=== PATIENT | female | born 1970 | race Two or more races ===

== ENCOUNTER 2017-06-07 19:31 | Emergency (ER) | payer OTHER, MEDICAID ==
[~2017-06-07] VITALS: Ht 149.9 cm; Wt 67.6 kg
[~2017-06-07 19:31] MED LIST: ALBU0.63 IN; AMIT25TA9 PO; AMLO10TA2 PO; DOCU100T15 PO; ERGO1CAP6 PO; HYDR-4663 PO; HYDR25TA4 PO; LAMO100T44 PO; LAMO200T34 PO; LEVE100020 PO; LEVO500T21 PO; LOSA50TA6 PO; METO25TA5 PO; TIZA4TAB3
[2017-06-07 20:43] LABS: Basophils # (auto) 0 uL; Basophils % (auto) 0.3 % (0.0-2.0); CONDITION Y; Eosinophils # (auto) 0.3 uL; Eosinophils % (auto) 2.2 % (0.0-7.0); Hemoglobin 16.2 g/dL (12.2-16.2); Lymphocytes # (auto) 2.4 uL; Lymphocytes % (auto) 17.6 % (10.0-50.0); Mean Corpuscular Hemoglobin 29.8 pg (28.0-32.0); Mean Corpuscular Hgb Conc. 33.7 g/dL (32.0-36.0); Mean Corpuscular Volume 88.3 fL (80.0-100.0); Mean Platelet Volume 8.1 fL (6.9-10.8); Monocytes # (auto) 0.7 uL; Monocytes % (auto) 5.4 % (0.0-12.0); Neutrophils % (auto) 74.5 % (37.0-80.0); Platelet Count (auto) 453 10^3/uL (140-450); Red Cell Distribution Width 13.3 % (11.8-14.3); White Blood Cell 13.4 10^3/uL (4.4-10.8)
[2017-06-07 21:09] LABS: Albumin 4.8 g/dL (3.4-5.0); BUN/Creatinine Ratio 15.2; Bilirubin, Total 0.8 mg/dL (0.2-1.0); Potassium 3.4 mmol/L (3.5-5.1)
[2017-06-08 01:14] LABS: Urine Bilirubin Negative (Negative); Urine Blood 1+ /uL (Negative); Urine Color Yellow (Yellow); Urine Glucose 4+ mg/dL (Normal); Urine Hyaline Cast FEW /lpf (0 - 2); Urine Ketone 2+ (Negative); Urine Mucus FEW (None Seen); Urine Nitrite POSITIVE (Negative); Urine RBC <1 /hpf (0 - 4); Urine Squamous Epithelial Cell FEW /hpf (<5); Urine Urobilinogen Normal (Negative); Urine pH 5.5 (5.0-8.0)
[2017-06-08] MEDS ORDERED: ONDANSETRON HCL 4 MG/2 ML VIAL IV ONE (03:15)
[2017-06-08] MEDS ORDERED: ALBUTEROL SULF 2.5 MG/0.5ML(0.5%) NEB SOLN NEB ONE (03:15)
[2017-06-08] MEDS ORDERED: IPRATROPIUM BROM 0.5 MG/2.5ML INH SOL NEB ONE (03:15)
[2017-06-08] MEDS ORDERED: MORPHINE SULF INJ 2 MG/ML SYRINGE 1ML IV ONE (03:15)
[2017-06-08] MEDS ORDERED: cefTRIAXone 1GM/50ML D5W 50 ML IV ONE (06:15)
[2017-06-08 07:26] VITALS: BP 150/103
== END 2017-06-08 07:32 | disposition home or self-care (01) ==
LOC: EDBD 19:31 → ER 19:32
DX: S33.5XXA Sprain of ligaments of lumbar spine, initial encounter (principal); M54.16 Radiculopathy, lumbar region; N39.0 Urinary tract infection, site not specified; E66.01 Morbid (severe) obesity due to excess calories; Z68.30 Body mass index [BMI] 30.0-30.9, adult; R06.02 Shortness of breath; E11.9 Type 2 diabetes mellitus without complications; K21.9 Gastro-esophageal reflux disease without esophagitis; E78.5 Hyperlipidemia, unspecified; I10 Essential (primary) hypertension; G89.4 Chronic pain syndrome; M54.9 Dorsalgia, unspecified; Z90.710 Acquired absence of both cervix and uterus; Z79.899 Other long term (current) drug therapy
CPT/HCPCS: 36415; 71020; 74176; 80053; 81001; 83690; 85025; 85379; 93005; 94640; 96365; 96375; 99285; J0696; J2270; J2405

== ENCOUNTER 2020-05-24 00:02 | Emergency (ER) | payer OTHER, MEDICAID ==
[~2020-05-24] VITALS: Ht 149.9 cm; Wt 81.6 kg
[~2020-05-24 00:02] MED LIST changes: +AMLO10TA13 PO; -AMLO10TA2 PO; -HYDR-4663 PO; +HYDR-4833 PO; +LOSA-69 PO; -LOSA50TA6 PO
[2020-05-24] MEDS ORDERED: ONDANSETRON HCL 4 MG/2 ML VIAL IV ONE (00:30)
[2020-05-24] MEDS ORDERED: HYDROmorphone HCL 2 MG/ML VL IV ONE ×2 (00:30→02:30)
[2020-05-24 01:14] LABS: Basophils # (auto) 0 10 ^3/uL (0-0.2); Basophils % (auto) 0.1 % (0.0-2.0); Eosinophils # (auto) 0 10 ^3/uL (0-0.8); Hematocrit 46.4 % (36.0-46.0); Lymphocytes # (auto) 1.1 10 ^3/uL (0.4-5.4); Lymphocytes % (auto) 7.8 % (10.0-50.0); Mean Corpuscular Hgb Conc. 34.5 g/dL (32.0-36.0); Mean Corpuscular Volume 87.1 fL (80.0-100.0); Monocytes # (auto) 0.4 10 ^3/uL (0-1.3); Neutrophils # (auto) 12.2 10 ^3/uL (1.6-8.6); Neutrophils % (auto) 89.1 % (37.0-80.0); Nucleated Red Blood Cells % 0.1 %; Platelet Count (auto) 504 10^3/uL (140-450); Red Blood Cells 5.32 10^6/uL (4.0-5.20); Red Cell Distribution Width 13.3 % (11.8-14.3); White Blood Cell 13.7 10^3/uL (4.4-10.8)
[2020-05-24 01:27] LABS: Albumin 5.3 g/dL (3.4-5.0); Calcium 10.1 mg/dL (8.5-10.1)
[2020-05-24 01:30] LABS: Bilirubin, Total 0.6 mg/dL (0.2-1.0); Total Protein 9.8 g/dL (6.4-8.2)
[2020-05-24] MEDS ORDERED: KETOROLAC TROMETH 30 MG/ML 1ML VIAL IV ONE ×2 (01:30→03:30)
[2020-05-24 02:00] VITALS: BP 160/94
== END 2020-05-24 03:08 | disposition home or self-care (01) ==
LOC: EDBD 00:02 → ER 00:02
DX: M54.41 Lumbago with sciatica, right side (principal); G89.29 Other chronic pain; F32.9 Major depressive disorder, single episode, unspecified; E11.9 Type 2 diabetes mellitus without complications; K21.9 Gastro-esophageal reflux disease without esophagitis; E78.5 Hyperlipidemia, unspecified; I10 Essential (primary) hypertension; Z98.890 Other specified postprocedural states; Z90.710 Acquired absence of both cervix and uterus; Z79.899 Other long term (current) drug therapy
CPT/HCPCS: 36415; 72131; 80053; 85025; 96374; 96375; 96376; 99284; J1170; J1885; J2405

== ENCOUNTER 2020-05-26 06:49 | Emergency (ER) | payer OTHER, MEDICAID ==
[~2020-05-26] VITALS: Ht 149.9 cm; Wt 72.6 kg
[2020-05-26] MEDS ORDERED: cloNIDine HCL 0.1 MG TAB PO ONE (07:15)
[2020-05-26] MEDS ORDERED: KETOROLAC TROMETH 60MG/2ML VIAL IM ONE (07:15)
[2020-05-26 07:58] LABS: Basophils # (auto) 0.1 10 ^3/uL (0-0.2); Basophils % (auto) 0.5 % (0.0-2.0); Eosinophils # (auto) 0.1 10 ^3/uL (0-0.8); Hematocrit 47.6 % (36.0-46.0); Hemoglobin 15.8 g/dL (12.2-16.2); Lymphocytes % (auto) 17.8 % (10.0-50.0); Mean Corpuscular Hgb Conc. 33.2 g/dL (32.0-36.0); Mean Corpuscular Volume 87.3 fL (80.0-100.0); Monocytes # (auto) 0.9 10 ^3/uL (0-1.3); Monocytes % (auto) 8.2 % (0.0-12.0); Neutrophils % (auto) 72.5 % (37.0-80.0); Nucleated Red Blood Cells % 0.1 %; Platelet Count (auto) 399 10^3/uL (140-450); Red Blood Cells 5.45 10^6/uL (4.0-5.20); Red Cell Distribution Width 13.5 % (11.8-14.3)
[2020-05-26 08:15] LABS: Albumin 4.8 g/dL (3.4-5.0); Calcium 9.5 mg/dL (8.5-10.1); Potassium 3.6 mmol/L (3.5-5.1)
[2020-05-26 08:23] LABS: BUN/Creatinine Ratio 15.9; Bilirubin, Total 0.8 mg/dL (0.2-1.0); Total Protein 8.7 g/dL (6.4-8.2)
[2020-05-26 09:38] LABS: Urine Bacteria FEW /hpf (None Seen); Urine Blood Negative /uL (Negative); Urine Specific Gravity 1.005 (1.001-1.035); Urine WBC 3 /hpf (0 - 5)
[2020-05-26] MEDS ORDERED: SODIUM CHLORIDE 0.9% 1,000 ML IV ONE ×2 (10:24)
[2020-05-26] MEDS ORDERED: MECLIZINE HCL 25 MG TAB ONE (12:21)
[2020-05-26] MEDS ORDERED: MECLIZINE HCL 25 MG TAB PO ONE (12:30)
[2020-05-26 13:54] VITALS: BP 171/76
== END 2020-05-26 14:00 | disposition home or self-care (01) ==
LOC: EDBD 06:49 → ER 06:49
DX: S09.8XXA Other specified injuries of head, initial encounter (principal); G89.4 Chronic pain syndrome; E86.0 Dehydration; N39.0 Urinary tract infection, site not specified; R42 Dizziness and giddiness; E11.65 Type 2 diabetes mellitus with hyperglycemia; I10 Essential (primary) hypertension; K21.9 Gastro-esophageal reflux disease without esophagitis; E78.5 Hyperlipidemia, unspecified; X58.XXXA Exposure to other specified factors, initial encounter; Y93.89 Activity, other specified; Y92.89 Other specified places as the place of occurrence of the external cause; Y99.8 Other external cause status
CPT/HCPCS: 36415; 70450; 71045; 80053; 81001; 84484; 85025; 96360; 96361; 96372; 99285; J1885; J7030; J8597

== ENCOUNTER 2020-11-24 02:25 | Inpatient (IN) | payer OTHER, MEDICAID ==
[~2020-11-24] VITALS: Ht 152.4 cm; Wt 57.5 kg
[~2020-11-24 02:25] MED LIST changes: +AMLO-496 PO; -AMLO10TA13 PO; -LEVO500T21 PO; +LEVO500T31 PO
[2020-11-24] MEDS ORDERED: LORazepam 2MG/ML-1ML VIAL ONE (02:36)
[2020-11-24] MEDS ORDERED: LORazepam 2MG/ML-1ML VIAL IV ONE ×2 (02:45→22:15)
[2020-11-24 02:47] LABS: Basophils # (auto) 0.1 10 ^3/uL (0-0.2); Monocytes # (auto) 1.1 10 ^3/uL (0-1.3); Nucleated Red Blood Cells % 0.1 %; Red Cell Distribution Width 13.3 % (11.8-14.3)
[2020-11-24 02:49] LABS: Basophils % (auto) 0.6 % (0.0-2.0); Eosinophils # (auto) 0.2 10 ^3/uL (0-0.8); Hematocrit 42.1 % (36.0-46.0); Lymphocytes # (auto) 5.3 10 ^3/uL (0.4-5.4); Lymphocytes % (auto) 28.8 % (10.0-50.0); Mean Corpuscular Hemoglobin 28.9 pg (28.0-32.0); Mean Corpuscular Hgb Conc. 33.4 g/dL (32.0-36.0); Mean Corpuscular Volume 86.5 fL (80.0-100.0); Neutrophils # (auto) 11.6 10 ^3/uL (1.6-8.6); Neutrophils % (auto) 63.6 % (37.0-80.0); Platelet Count (auto) 456 10^3/uL (140-450); Red Blood Cells 4.86 10^6/uL (4.0-5.20); White Blood Cell 18.3 10^3/uL (4.4-10.8)
[2020-11-24] MEDS ORDERED: ACETAMINOPHEN 650 MG RECT SUPP PR ONE ×2 (03:00→03:26)
[2020-11-24 03:13] LABS: Albumin 4.2 g/dL (3.4-5.0); BUN/Creatinine Ratio 13.8; Calcium 9.1 mg/dL (8.5-10.1); Potassium 4.7 mmol/L (3.5-5.1)
[2020-11-24] MEDS ORDERED: fentaNYL CITRATE 100 MCG/2 ML VL IV ONE (03:15)
[2020-11-24] MEDS ORDERED: ONDANSETRON HCL 4 MG/2 ML VIAL IV ONE (03:15)
[2020-11-24 03:16] LABS: Bilirubin, Total 0.5 mg/dL (0.2-1.0); Total Protein 7.9 g/dL (6.4-8.2)
[2020-11-24] MEDS ORDERED: ACETAMINOPHEN 120 MG RECT SUPP PR ONE ×2 (03:26→03:27)
[2020-11-24 03:28] LABS: Lactic Acid w/Reflex 15.6 mmol/L (0.4-2.0)
[2020-11-24 03:48] LABS: Urine Bacteria FEW /hpf (None Seen); Urine Blood 1+ /uL (Negative); Urine Hyaline Cast FEW /lpf (0 - 2); Urine Specific Gravity 1.023 (1.001-1.035); Urine WBC 1 /hpf (0 - 5)
[2020-11-24 03:56] LABS: Alcohol, Urine < 3.0 mg/dL (0-10); Amphetamine Screen, Urine NEGATIVE (NEGATIVE); Barbiturate Scree,Urine NEGATIVE (NEGATIVE); Benzodiazephine Screen, Urine NEGATIVE (NEGATIVE); Cannabinoid Screen, Urine NEGATIVE (NEGATIVE); Cocaine Screen, Urine NEGATIVE (NEGATIVE); Opiate Scree,Urine POSITIVE (NEGATIVE); Phencyclidine Screen, Urine NEGATIVE (NEGATIVE)
[2020-11-24] MEDS ORDERED: cefTRIAXone 1GM/50ML D5W 50 ML IV ONE (05:45)
[2020-11-24] MEDS ORDERED: DEXTROSE (50%) 50ML SYRG IV PRN ×3 (05:45→07:15)
[2020-11-24] MEDS ORDERED: InsuLIN R (HUMAN) 100 UNITS in SODIUM CHL 0.9% 99 ML IV SCH (05:45)
[2020-11-24] MEDS ORDERED: INSULIN LANTUS (GLARGINE) 1 /0.01ml (100units/ml) SC ONE (05:45)
[2020-11-24] MEDS ORDERED: VANCOMYCIN 1GM/250ML 250 ML IV ONE (05:45)
[2020-11-24] MEDS ORDERED: SODIUM CHLORIDE 0.9% 1,000 ML IV ONE (05:45)
[2020-11-24] MEDS ORDERED: ACCU-CHEK COMFORT CURVE STRIP VI SCH ×2 (06:00→08:00)
[2020-11-24] MEDS ORDERED: LORazepam 2MG/ML-1ML VIAL IV PRN ×2 (07:15→10:00)
[2020-11-24] MEDS ORDERED: ONDANSETRON HCL 4 MG/2 ML VIAL IV PRN (07:15)
[2020-11-24] MEDS ORDERED: MORPHINE SULF INJ 2 MG/ML SYRINGE 1ML IV PRN (07:15)
[2020-11-24] MEDS ORDERED: ACETAMINOPHEN 325 MG TAB PO PRN (07:15)
[2020-11-24] MEDS ORDERED: NITROGLYCERIN 0.4 MG SL TAB SL PRN (07:15)
[2020-11-24] MEDS ORDERED: VANCOMYCIN PER PHARMACY 0 MG IV SCH (07:30)
[2020-11-24] MEDS: SODIUM CHLORIDE 0.9% 1,000 ML IV SCH (07:49)
[2020-11-24] MEDS ORDERED: InsuLIN REG 1unit/0.01ml Soln (100units/ml) SC SCH (08:00)
[2020-11-24 08:06] LABS: Albumin 3.5 g/dL (3.4-5.0); Calcium 7.8 mg/dL (8.5-10.1); Potassium 3.9 mmol/L (3.5-5.1)
[2020-11-24 08:10] LABS: Bilirubin, Total 0.4 mg/dL (0.2-1.0); Total Protein 6.8 g/dL (6.4-8.2)
[2020-11-24 08:15] LABS: Basophils # (auto) 0 10 ^3/uL (0-0.2); Basophils % (auto) 0.1 % (0.0-2.0); Eosinophils # (auto) 0 10 ^3/uL (0-0.8); Eosinophils % (auto) 0.1 % (0.0-7.0); Hematocrit 36.1 % (36.0-46.0); Hemoglobin 12.7 g/dL (12.2-16.2); Lymphocytes # (auto) 0.9 10 ^3/uL (0.4-5.4); Lymphocytes % (auto) 8.4 % (10.0-50.0); Mean Corpuscular Hemoglobin 29.3 pg (28.0-32.0); Mean Corpuscular Hgb Conc. 35.1 g/dL (32.0-36.0); Mean Corpuscular Volume 83.6 fL (80.0-100.0); Monocytes # (auto) 0.5 10 ^3/uL (0-1.3); Monocytes % (auto) 4.5 % (0.0-12.0); Neutrophils # (auto) 9.1 10 ^3/uL (1.6-8.6); Neutrophils % (auto) 86.9 % (37.0-80.0); Platelet Count (auto) 253 10^3/uL (140-450); Red Blood Cells 4.31 10^6/uL (4.0-5.20); Red Cell Distribution Width 12.9 % (11.8-14.3); White Blood Cell 10.5 10^3/uL (4.4-10.8)
[2020-11-24] MEDS: ZINC SULFATE 220mg CAP or TAB PO SCH (10:00)
[2020-11-24] MEDS: ASCORBIC ACID 500 MG TAB PO SCH ×2 (10:00→22:22)
[2020-11-24] MEDS: levETIRAcetam 500 MG TAB PO SCH ×2 (10:00→22:22)
[2020-11-24] MEDS: MULTIPLE VITAMIN TAB PO SCH (10:00)
[2020-11-24] MEDS ORDERED: VANCOMYCIN 1GM/250ML 250 ML IV SCH (10:00)
[2020-11-24] MEDS: FAMOTIDINE (10MG/ML) 2ML VL IV SCH (10:02)
[2020-11-24] MEDS: ENOXAPARIN SOD 40 MG/0.4 ML SYRINGE SC SCH (10:02)
[2020-11-24] MEDS: HYDROcodone-ACET 5/325MG TAB PO PRN (10:07)
[2020-11-24] MEDS: lamoTRIgine 100 MG TAB PO SCH ×2 (10:36→22:22)
[2020-11-24] MEDS: DOCUSATE SOD 100 MG CAP PO PRN (10:36)
[2020-11-24] MEDS: ACCU-CHEK COMFORT CURVE STRIP VI SCH ×3 (11:49→22:22)
[2020-11-24] MEDS: InsuLIN REG 1unit/0.01ml Soln (100units/ml) SC SCH ×3 (11:57→22:23)
[2020-11-24 12:30] VITALS: BP 152/92
[2020-11-24] MEDS: PIPERACILLIN-TAZOB 3.375GM 100 ML IV SCH ×2 (15:39→23:00)
[2020-11-24] MEDS: MORPHINE SULF INJ 2 MG/ML SYRINGE 1ML IV PRN ×2 (15:40→20:31)
[2020-11-24 17:00] VITALS: BP 145/102
[2020-11-24] MEDS ORDERED: CLON0.2T PO (17:03)
[2020-11-24] MEDS ORDERED: PIOG30TA20 PO (17:04)
[2020-11-24] MEDS ORDERED: LORA1TAB23 PO (17:06)
[2020-11-24] MEDS ORDERED: PREG50CA PO (17:08)
[2020-11-24] MEDS ORDERED: OXYB5TAB24 PO (17:08)
[2020-11-24] MEDS ORDERED: amLODIPine BESYLATE 5 MG TAB PO ONE (17:15)
[2020-11-24] MEDS ORDERED: cloNIDine HCL 0.1 MG TAB PO ONE (17:15)
[2020-11-24] MEDS: LORazepam 2MG/ML-1ML VIAL IV PRN (18:29)
[2020-11-24] MEDS: VANCOMYCIN 1GM/250ML 250 ML IV SCH (18:29)
[2020-11-24 22:00] VITALS: BP 178/102
[2020-11-24 22:27] LABS: BUN/Creatinine Ratio 12.4; Calcium 8.9 mg/dL (8.5-10.1); Potassium 3.9 mmol/L (3.5-5.1)
[2020-11-24 23:45] VITALS: BP 123/83
[2020-11-25] MEDS: MORPHINE SULF INJ 2 MG/ML SYRINGE 1ML IV PRN ×3 (03:55→18:37)
[2020-11-25 05:00] VITALS: BP 131/104
[2020-11-25 05:08] LABS: Basophils # (auto) 0 10 ^3/uL (0-0.2); Basophils % (auto) 0.4 % (0.0-2.0); Eosinophils # (auto) 0 10 ^3/uL (0-0.8); Hematocrit 42.7 % (36.0-46.0); Hemoglobin 14.8 g/dL (12.2-16.2); Lymphocytes # (auto) 1.2 10 ^3/uL (0.4-5.4); Lymphocytes % (auto) 9.7 % (10.0-50.0); Mean Corpuscular Hemoglobin 29.1 pg (28.0-32.0); Mean Corpuscular Hgb Conc. 34.6 g/dL (32.0-36.0); Monocytes # (auto) 0.7 10 ^3/uL (0-1.3); Monocytes % (auto) 6.2 % (0.0-12.0); Neutrophils % (auto) 83.7 % (37.0-80.0); Platelet Count (auto) 299 10^3/uL (140-450); Red Blood Cells 5.09 10^6/uL (4.0-5.20); Red Cell Distribution Width 13.5 % (11.8-14.3); White Blood Cell 11.9 10^3/uL (4.4-10.8)
[2020-11-25 05:26] LABS: Calcium 8.7 mg/dL (8.5-10.1); Potassium 3.9 mmol/L (3.5-5.1)
[2020-11-25 05:31] LABS: BUN/Creatinine Ratio 15.9; Total Protein 7.9 g/dL (6.4-8.2)
[2020-11-25] MEDS: PIPERACILLIN-TAZOB 3.375GM 100 ML IV SCH ×3 (05:52→22:42)
[2020-11-25] MEDS: VANCOMYCIN 1GM/250ML 250 ML IV SCH (06:05)
[2020-11-25] MEDS: LORazepam 2MG/ML-1ML VIAL IV PRN (06:06)
[2020-11-25] MEDS: ACCU-CHEK COMFORT CURVE STRIP VI SCH ×4 (06:33→22:00)
[2020-11-25] MEDS: InsuLIN REG 1unit/0.01ml Soln (100units/ml) SC SCH ×5 (06:34→22:49)
[2020-11-25 09:00] VITALS: BP 135/98
[2020-11-25] MEDS: FAMOTIDINE (10MG/ML) 2ML VL IV SCH (10:00)
[2020-11-25] MEDS: HCTZ 25 MG TAB PO SCH (10:00)
[2020-11-25] MEDS: ZINC SULFATE 220mg CAP or TAB PO SCH (11:33)
[2020-11-25] MEDS: lamoTRIgine 100 MG TAB PO SCH ×2 (11:33→22:40)
[2020-11-25] MEDS: levETIRAcetam 500 MG TAB PO SCH ×2 (11:33→22:39)
[2020-11-25] MEDS: MULTIPLE VITAMIN TAB PO SCH (11:33)
[2020-11-25] MEDS: ENOXAPARIN SOD 40 MG/0.4 ML SYRINGE SC SCH (11:34)
[2020-11-25] MEDS: amLODIPine BESYLATE 5 MG TAB PO SCH (11:51)
[2020-11-25] MEDS: cloNIDine HCL 0.1 MG TAB PO SCH ×2 (11:52→22:41)
[2020-11-25] MEDS: ASCORBIC ACID 500 MG TAB PO SCH ×2 (11:54→22:40)
[2020-11-25] MEDS: INSULIN LANTUS (GLARGINE) 1 /0.01ml (100units/ml) SC SCH (12:05)
[2020-11-25 13:00] VITALS: BP 123/92
[2020-11-25] MEDS: SODIUM CHLORIDE 0.9% 1,000 ML IV SCH (16:04)
[2020-11-25 17:00] VITALS: BP 110/68
[2020-11-25 21:00] VITALS: BP 115/83
[2020-11-25] MEDS: HYDROcodone-ACET 5/325MG TAB PO PRN (22:41)
[2020-11-26] MEDS: METOPROLOL TARTRATE 25 MG TAB PO SCH ×3 (00:36→22:15)
[2020-11-26] MEDS: MORPHINE SULF INJ 2 MG/ML SYRINGE 1ML IV PRN ×5 (00:37→22:15)
[2020-11-26 05:00] VITALS: BP 89/61
[2020-11-26] MEDS: InsuLIN REG 1unit/0.01ml Soln (100units/ml) SC SCH ×4 (06:22→22:26)
[2020-11-26] MEDS: PIPERACILLIN-TAZOB 3.375GM 100 ML IV SCH ×3 (06:26→22:16)
[2020-11-26] MEDS: ACCU-CHEK COMFORT CURVE STRIP VI SCH ×4 (06:29→22:26)
[2020-11-26 07:31] LABS: Basophils # (auto) 0 10 ^3/uL (0-0.2); Basophils % (auto) 0.1 % (0.0-2.0); Eosinophils # (auto) 0 10 ^3/uL (0-0.8); Hematocrit 43.9 % (36.0-46.0); Hemoglobin 14.9 g/dL (12.2-16.2); Lymphocytes # (auto) 0.8 10 ^3/uL (0.4-5.4); Lymphocytes % (auto) 5.3 % (10.0-50.0); Mean Corpuscular Hgb Conc. 33.9 g/dL (32.0-36.0); Mean Corpuscular Volume 85.4 fL (80.0-100.0); Monocytes # (auto) 0.5 10 ^3/uL (0-1.3); Monocytes % (auto) 3.3 % (0.0-12.0); Neutrophils # (auto) 13.3 10 ^3/uL (1.6-8.6); Neutrophils % (auto) 91.3 % (37.0-80.0); Platelet Count (auto) 320 10^3/uL (140-450); Red Blood Cells 5.14 10^6/uL (4.0-5.20); Red Cell Distribution Width 13.5 % (11.8-14.3); White Blood Cell 14.5 10^3/uL (4.4-10.8)
[2020-11-26 07:48] LABS: Calcium 9.1 mg/dL (8.5-10.1); Magnesium 2.4 mg/dL (1.6-2.6)
[2020-11-26 09:00] VITALS: BP 113/71
[2020-11-26] MEDS: SODIUM CHLORIDE 0.9% 1,000 ML IV SCH (09:00)
[2020-11-26] MEDS: amLODIPine BESYLATE 5 MG TAB PO SCH (09:17)
[2020-11-26] MEDS: lamoTRIgine 100 MG TAB PO SCH ×2 (09:17→22:15)
[2020-11-26] MEDS: ZINC SULFATE 220mg CAP or TAB PO SCH (09:17)
[2020-11-26] MEDS: MULTIPLE VITAMIN TAB PO SCH (09:18)
[2020-11-26] MEDS: ASCORBIC ACID 500 MG TAB PO SCH ×2 (09:18→22:14)
[2020-11-26] MEDS: FAMOTIDINE (10MG/ML) 2ML VL IV SCH ×2 (09:24→22:16)
[2020-11-26] MEDS: ENOXAPARIN SOD 40 MG/0.4 ML SYRINGE SC SCH (09:25)
[2020-11-26] MEDS: levETIRAcetam 500 MG TAB PO SCH ×2 (09:38→22:17)
[2020-11-26] MEDS: INSULIN LANTUS (GLARGINE) 1 /0.01ml (100units/ml) SC SCH (09:39)
[2020-11-26] MEDS: HCTZ 25 MG TAB PO SCH (10:00)
[2020-11-26] MEDS: ASPirin 81 mg TAB PO SCH (11:44)
[2020-11-26] MEDS: cloNIDine HCL 0.1 MG TAB PO SCH ×2 (11:44→22:14)
[2020-11-26 13:00] VITALS: BP 107/68
[2020-11-26 17:00] VITALS: BP 105/60
[2020-11-26 22:00] VITALS: BP 144/80
[2020-11-26] MEDS: ATORVASTATIN 20 MG TAB PO SCH (22:14)
[2020-11-26] MEDS: ENOXAPARIN SOD 60 MG/0.6 ML SYRINGE SC SCH (22:17)
[2020-11-27] MEDS: HYDROcodone-ACET 5/325MG TAB PO PRN ×2 (01:20→11:52)
[2020-11-27] MEDS: MORPHINE SULF INJ 2 MG/ML SYRINGE 1ML IV PRN ×2 (02:38→10:08)
[2020-11-27] MEDS: SODIUM CHLORIDE 0.9% 1,000 ML IV SCH ×2 (02:43→10:46)
[2020-11-27] MEDS: LORazepam 2MG/ML-1ML VIAL IV PRN (04:27)
[2020-11-27 05:00] VITALS: BP 124/79
[2020-11-27] MEDS: InsuLIN REG 1unit/0.01ml Soln (100units/ml) SC SCH ×4 (06:27→21:29)
[2020-11-27] MEDS: ACCU-CHEK COMFORT CURVE STRIP VI SCH ×4 (06:28→21:29)
[2020-11-27] MEDS: PIPERACILLIN-TAZOB 3.375GM 100 ML IV SCH ×3 (06:29→21:20)
[2020-11-27 09:21] VITALS: BP 121/78
[2020-11-27] MEDS: ENOXAPARIN SOD 60 MG/0.6 ML SYRINGE SC SCH (10:00)
[2020-11-27] MEDS: DOCUSATE SOD 100 MG CAP PO PRN (10:08)
[2020-11-27] MEDS: FAMOTIDINE (10MG/ML) 2ML VL IV SCH ×2 (10:28→21:20)
[2020-11-27] MEDS: ASPirin 81 mg TAB PO SCH (10:28)
[2020-11-27] MEDS: HCTZ 25 MG TAB PO SCH (10:29)
[2020-11-27] MEDS: METOPROLOL TARTRATE 25 MG TAB PO SCH ×2 (10:29→21:20)
[2020-11-27] MEDS: levETIRAcetam 500 MG TAB PO SCH ×2 (10:29→21:19)
[2020-11-27] MEDS: lamoTRIgine 100 MG TAB PO SCH ×2 (10:29→21:19)
[2020-11-27] MEDS: ZINC SULFATE 220mg CAP or TAB PO SCH (10:29)
[2020-11-27] MEDS: amLODIPine BESYLATE 5 MG TAB PO SCH (10:30)
[2020-11-27] MEDS: MULTIPLE VITAMIN TAB PO SCH (10:30)
[2020-11-27] MEDS: ASCORBIC ACID 500 MG TAB PO SCH ×2 (10:30→21:18)
[2020-11-27 11:25] LABS: Basophils # (auto) 0 10 ^3/uL (0-0.2); Basophils % (auto) 0.1 % (0.0-2.0); Eosinophils # (auto) 0 10 ^3/uL (0-0.8); Eosinophils % (auto) 0.1 % (0.0-7.0); Hematocrit 39.4 % (36.0-46.0); Hemoglobin 13.2 g/dL (12.2-16.2); Lymphocytes # (auto) 0.9 10 ^3/uL (0.4-5.4); Lymphocytes % (auto) 8.5 % (10.0-50.0); Mean Corpuscular Hemoglobin 28.7 pg (28.0-32.0); Mean Corpuscular Hgb Conc. 33.6 g/dL (32.0-36.0); Mean Corpuscular Volume 85.7 fL (80.0-100.0); Monocytes # (auto) 0.9 10 ^3/uL (0-1.3); Monocytes % (auto) 8.4 % (0.0-12.0); Neutrophils # (auto) 8.7 10 ^3/uL (1.6-8.6); Neutrophils % (auto) 82.9 % (37.0-80.0); Nucleated Red Blood Cells % 0.1 %; Platelet Count (auto) 320 10^3/uL (140-450); Red Cell Distribution Width 13.8 % (11.8-14.3); White Blood Cell 10.4 10^3/uL (4.4-10.8)
[2020-11-27 11:40] LABS: BUN/Creatinine Ratio 35.7; Calcium 8.8 mg/dL (8.5-10.1); Potassium 4.3 mmol/L (3.5-5.1)
[2020-11-27] MEDS: INSULIN LANTUS (GLARGINE) 1 /0.01ml (100units/ml) SC SCH (11:50)
[2020-11-27 13:47] VITALS: BP 135/83
[2020-11-27] MEDS: cloNIDine HCL 0.1 MG TAB PO SCH ×2 (13:53→21:20)
[2020-11-27 16:51] VITALS: BP 126/76
[2020-11-27] MEDS: MORPHINE SULFATE 4 MG/ML SYR/VIAL IV PRN (19:32)
[2020-11-27] MEDS: ATORVASTATIN 20 MG TAB PO SCH (21:19)
[2020-11-27 22:00] VITALS: BP 125/79
[2020-11-28] MEDS: SODIUM CHLORIDE 0.9% 1,000 ML IV SCH ×4 (00:39→21:51)
[2020-11-28] MEDS: MORPHINE SULFATE 4 MG/ML SYR/VIAL IV PRN ×4 (02:11→21:38)
[2020-11-28 05:00] VITALS: BP 121/82
[2020-11-28 05:44] LABS: Basophils # (auto) 0 10 ^3/uL (0-0.2); Basophils % (auto) 0.3 % (0.0-2.0); Eosinophils # (auto) 0.1 10 ^3/uL (0-0.8); Eosinophils % (auto) 1.3 % (0.0-7.0); Hematocrit 38.1 % (36.0-46.0); Hemoglobin 13.5 g/dL (12.2-16.2); Lymphocytes # (auto) 1.3 10 ^3/uL (0.4-5.4); Lymphocytes % (auto) 19.4 % (10.0-50.0); Mean Corpuscular Hemoglobin 29.9 pg (28.0-32.0); Mean Corpuscular Hgb Conc. 35.5 g/dL (32.0-36.0); Mean Corpuscular Volume 84.4 fL (80.0-100.0); Monocytes # (auto) 0.7 10 ^3/uL (0-1.3); Monocytes % (auto) 10.8 % (0.0-12.0); Neutrophils # (auto) 4.6 10 ^3/uL (1.6-8.6); Neutrophils % (auto) 68.2 % (37.0-80.0); Nucleated Red Blood Cells % 0.5 %; Platelet Count (auto) 307 10^3/uL (140-450); Red Blood Cells 4.52 10^6/uL (4.0-5.20); Red Cell Distribution Width 13.8 % (11.8-14.3); White Blood Cell 6.8 10^3/uL (4.4-10.8)
[2020-11-28 06:02] LABS: BUN/Creatinine Ratio 19.4; Calcium 8.5 mg/dL (8.5-10.1); Potassium 3.1 mmol/L (3.5-5.1)
[2020-11-28] MEDS: PIPERACILLIN-TAZOB 3.375GM 100 ML IV SCH ×3 (06:15→22:07)
[2020-11-28] MEDS: InsuLIN REG 1unit/0.01ml Soln (100units/ml) SC SCH ×4 (06:16→21:34)
[2020-11-28] MEDS: ACCU-CHEK COMFORT CURVE STRIP VI SCH ×4 (06:16→21:13)
[2020-11-28] MEDS: HYDROcodone-ACET 10/325MG TAB PO PRN ×2 (08:29→19:05)
[2020-11-28 09:00] VITALS: BP 146/83
[2020-11-28] MEDS: ENOXAPARIN SOD 40 MG/0.4 ML SYRINGE SC SCH ×2 (10:00→11:05)
[2020-11-28] MEDS: ZINC SULFATE 220mg CAP or TAB PO SCH (11:02)
[2020-11-28] MEDS: ASPirin 81 mg TAB PO SCH (11:02)
[2020-11-28] MEDS: FAMOTIDINE (10MG/ML) 2ML VL IV SCH ×2 (11:02→21:10)
[2020-11-28] MEDS: levETIRAcetam 500 MG TAB PO SCH ×2 (11:03→21:11)
[2020-11-28] MEDS: lamoTRIgine 100 MG TAB PO SCH ×2 (11:03→21:11)
[2020-11-28] MEDS: cloNIDine HCL 0.1 MG TAB PO SCH ×2 (11:03→21:11)
[2020-11-28] MEDS: HCTZ 25 MG TAB PO SCH (11:03)
[2020-11-28] MEDS: ASCORBIC ACID 500 MG TAB PO SCH ×2 (11:04→21:12)
[2020-11-28] MEDS: METOPROLOL TARTRATE 25 MG TAB PO SCH ×2 (11:04→21:12)
[2020-11-28] MEDS: MULTIPLE VITAMIN TAB PO SCH (11:04)
[2020-11-28] MEDS: amLODIPine BESYLATE 5 MG TAB PO SCH (11:04)
[2020-11-28] MEDS: INSULIN LANTUS (GLARGINE) 1 /0.01ml (100units/ml) SC SCH (12:34)
[2020-11-28 13:26] VITALS: BP 103/63
[2020-11-28] MEDS ORDERED: POTASSIUM CHLORIDE 40 MEQ, LIDOCAINE 1% (LOCAL ANESTH.) 4 ML in SODIUM CHL 0.9% 250 ML IV ONE (16:45)
[2020-11-28 17:37] VITALS: BP 119/70
[2020-11-28] MEDS: ATORVASTATIN 20 MG TAB PO SCH (21:11)
[2020-11-28 22:00] VITALS: BP 135/101
[2020-11-29] MEDS: MORPHINE SULFATE 4 MG/ML SYR/VIAL IV PRN ×4 (03:35→19:06)
[2020-11-29] MEDS: ACCU-CHEK COMFORT CURVE STRIP VI SCH ×4 (05:31→21:44)
[2020-11-29] MEDS: SODIUM CHLORIDE 0.9% 1,000 ML IV SCH ×2 (05:31→10:11)
[2020-11-29] MEDS: PIPERACILLIN-TAZOB 3.375GM 100 ML IV SCH ×3 (05:31→21:58)
[2020-11-29] MEDS: InsuLIN REG 1unit/0.01ml Soln (100units/ml) SC SCH ×4 (05:31→22:01)
[2020-11-29] MEDS: HYDROcodone-ACET 10/325MG TAB PO PRN ×2 (05:32→15:06)
[2020-11-29 05:35] VITALS: BP 146/86
[2020-11-29 08:50] VITALS: BP 134/80
[2020-11-29] MEDS: levETIRAcetam 500 MG TAB PO SCH ×2 (09:51→21:43)
[2020-11-29] MEDS: HCTZ 25 MG TAB PO SCH (09:52)
[2020-11-29] MEDS: cloNIDine HCL 0.1 MG TAB PO SCH ×2 (09:52→21:58)
[2020-11-29] MEDS: lamoTRIgine 100 MG TAB PO SCH ×2 (09:53→21:43)
[2020-11-29] MEDS: amLODIPine BESYLATE 5 MG TAB PO SCH (09:53)
[2020-11-29] MEDS: MULTIPLE VITAMIN TAB PO SCH (09:54)
[2020-11-29] MEDS: METOPROLOL TARTRATE 25 MG TAB PO SCH ×2 (09:55→21:58)
[2020-11-29] MEDS: INSULIN LANTUS (GLARGINE) 1 /0.01ml (100units/ml) SC SCH (10:10)
[2020-11-29] MEDS: POTASSIUM CHL 20 Meq TABLET PO SCH (10:10)
[2020-11-29] MEDS: FAMOTIDINE 20 MG TAB PO SCH (10:10)
[2020-11-29 13:30] VITALS: BP 145/101
[2020-11-29] MEDS ORDERED: GADOTERATE MEG 10 MMOL/20ml INJ (0.5MMOL/ml) IV ONE (14:13)
[2020-11-29] MEDS: LORazepam 2MG/ML-1ML VIAL IV PRN (15:22)
[2020-11-29 16:49] VITALS: BP 143/76
[2020-11-29] MEDS: CYCLOBENZAPRINE HCL 10 MG TAB PO SCH (21:42)
[2020-11-29] MEDS: ATORVASTATIN 20 MG TAB PO SCH (21:43)
[2020-11-29] MEDS: oxyCODONE ER 10 MG TAB PO SCH (21:44)
[2020-11-29 21:46] VITALS: BP 136/77
[2020-11-30] MEDS: SODIUM CHLORIDE 0.9% 1,000 ML IV SCH (00:40)
[2020-11-30] MEDS: MORPHINE SULFATE 4 MG/ML SYR/VIAL IV PRN (03:12)
[2020-11-30 04:43] VITALS: BP 118/75
[2020-11-30] MEDS: PIPERACILLIN-TAZOB 3.375GM 100 ML IV SCH ×2 (05:38→14:40)
[2020-11-30] MEDS: ACCU-CHEK COMFORT CURVE STRIP VI SCH ×4 (05:38→22:05)
[2020-11-30 06:13] LABS: Albumin 3.1 g/dL (3.4-5.0); BUN/Creatinine Ratio 11.9; Bilirubin, Total 0.7 mg/dL (0.2-1.0); Calcium 8.9 mg/dL (8.5-10.1); Magnesium 1.9 mg/dL (1.6-2.6)
[2020-11-30 06:18] LABS: Potassium 2.9 mmol/L (3.5-5.1)
[2020-11-30] MEDS ORDERED: POTASSIUM CHL 20 Meq TABLET PO ONE ×2 (06:30→10:30)
[2020-11-30] MEDS ORDERED: POTASSIUM CHLORIDE 40 MEQ, LIDOCAINE 1% (LOCAL ANESTH.) 4 ML in SODIUM CHL 0.9% 250 ML IV ONE (06:30)
[2020-11-30] MEDS: HYDROcodone-ACET 10/325MG TAB PO PRN (06:35)
[2020-11-30 07:56] LABS: INR 0.99 (0.9-1.15); Partial Thromboplastin Time 25.6 sec (23.0-31.2)
[2020-11-30 09:10] VITALS: BP 137/77
[2020-11-30] MEDS: levETIRAcetam 500 MG TAB PO SCH ×2 (09:16→21:53)
[2020-11-30] MEDS: MULTIPLE VITAMIN TAB PO SCH (09:17)
[2020-11-30] MEDS: POTASSIUM CHL 20 Meq TABLET PO SCH (09:17)
[2020-11-30] MEDS: METOPROLOL TARTRATE 25 MG TAB PO SCH ×2 (09:18→21:56)
[2020-11-30] MEDS: amLODIPine BESYLATE 5 MG TAB PO SCH (09:18)
[2020-11-30] MEDS: oxyCODONE ER 10 MG TAB PO SCH ×2 (09:18→21:54)
[2020-11-30] MEDS: lamoTRIgine 100 MG TAB PO SCH ×2 (09:18→21:53)
[2020-11-30] MEDS: FAMOTIDINE 20 MG TAB PO SCH (09:19)
[2020-11-30] MEDS: CYCLOBENZAPRINE HCL 10 MG TAB PO SCH ×2 (09:19→21:52)
[2020-11-30] MEDS: HCTZ 25 MG TAB PO SCH (09:20)
[2020-11-30] MEDS: cloNIDine HCL 0.1 MG TAB PO SCH ×2 (09:20→21:57)
[2020-11-30] MEDS: INSULIN LANTUS (GLARGINE) 1 /0.01ml (100units/ml) SC SCH (10:00)
[2020-11-30] MEDS ORDERED: HYDROcodone-ACET 10/325MG TAB PO PRN (10:30)
[2020-11-30] MEDS: InsuLIN REG 1unit/0.01ml Soln (100units/ml) SC SCH ×2 (11:30→17:00)
[2020-11-30 13:11] VITALS: BP 106/63
[2020-11-30 15:57] VITALS: BP 127/70
[2020-11-30] MEDS: MORPHINE SULF INJ 2 MG/ML SYRINGE 1ML IV PRN (20:27)
[2020-11-30] MEDS: ATORVASTATIN 20 MG TAB PO SCH (21:53)
[2020-11-30] MEDS: CIPROFLOXACIN HCL 500 MG TAB PO SCH (21:54)
[2020-11-30 22:00] VITALS: BP 139/110
[2020-11-30] MEDS: LORazepam 2MG/ML-1ML VIAL IV PRN (23:14)
[2020-12-01 05:00] VITALS: BP 133/77
[2020-12-01] MEDS: MORPHINE SULF INJ 2 MG/ML SYRINGE 1ML IV PRN ×3 (05:42→18:37)
[2020-12-01 06:09] LABS: BUN/Creatinine Ratio 17.5; Calcium 9.2 mg/dL (8.5-10.1); Potassium 4.4 mmol/L (3.5-5.1)
[2020-12-01] MEDS: ACCU-CHEK COMFORT CURVE STRIP VI SCH ×4 (06:26→20:24)
[2020-12-01] MEDS: InsuLIN REG 1unit/0.01ml Soln (100units/ml) SC SCH ×3 (06:27→17:19)
[2020-12-01] MEDS: LORazepam 2MG/ML-1ML VIAL IV PRN (08:36)
[2020-12-01 09:00] VITALS: BP 126/80
[2020-12-01] MEDS: amLODIPine BESYLATE 5 MG TAB PO SCH (09:52)
[2020-12-01] MEDS: lamoTRIgine 100 MG TAB PO SCH ×2 (09:52→21:26)
[2020-12-01] MEDS: levETIRAcetam 500 MG TAB PO SCH ×2 (09:53→21:26)
[2020-12-01] MEDS: POTASSIUM CHL 20 Meq TABLET PO SCH (09:54)
[2020-12-01] MEDS: CYCLOBENZAPRINE HCL 10 MG TAB PO SCH ×2 (09:54→21:26)
[2020-12-01] MEDS: FAMOTIDINE 20 MG TAB PO SCH (09:54)
[2020-12-01] MEDS: HCTZ 25 MG TAB PO SCH (09:55)
[2020-12-01] MEDS: CIPROFLOXACIN HCL 500 MG TAB PO SCH ×2 (09:55→21:25)
[2020-12-01] MEDS: oxyCODONE ER 10 MG TAB PO SCH ×2 (09:55→21:27)
[2020-12-01] MEDS: MULTIPLE VITAMIN TAB PO SCH (09:56)
[2020-12-01] MEDS: METOPROLOL TARTRATE 25 MG TAB PO SCH ×2 (09:56→21:33)
[2020-12-01] MEDS: cloNIDine HCL 0.1 MG TAB PO SCH ×2 (09:58→21:32)
[2020-12-01] MEDS: INSULIN LANTUS (GLARGINE) 1 /0.01ml (100units/ml) SC SCH (10:23)
[2020-12-01 13:00] VITALS: BP 120/74
[2020-12-01 17:00] VITALS: BP 123/75
[2020-12-01] MEDS: ATORVASTATIN 20 MG TAB PO SCH (21:26)
[2020-12-02] MEDS: MORPHINE SULF INJ 2 MG/ML SYRINGE 1ML IV PRN ×3 (01:02→11:21)
[2020-12-02 05:00] VITALS: BP 134/90
[2020-12-02] MEDS: InsuLIN REG 1unit/0.01ml Soln (100units/ml) SC SCH ×3 (05:56→17:00)
[2020-12-02] MEDS: ACCU-CHEK COMFORT CURVE STRIP VI SCH ×3 (05:56→17:00)
[2020-12-02 08:00] VITALS: BP 121/86
[2020-12-02 09:00] VITALS: BP 121/86
[2020-12-02] MEDS: LORazepam 2MG/ML-1ML VIAL IV PRN (09:26)
[2020-12-02] MEDS: HCTZ 25 MG TAB PO SCH (11:56)
[2020-12-02] MEDS: CIPROFLOXACIN HCL 500 MG TAB PO SCH (11:56)
[2020-12-02] MEDS: CYCLOBENZAPRINE HCL 10 MG TAB PO SCH (11:56)
[2020-12-02] MEDS: cloNIDine HCL 0.1 MG TAB PO SCH (11:56)
[2020-12-02] MEDS: POTASSIUM CHL 20 Meq TABLET PO SCH (11:57)
[2020-12-02] MEDS: lamoTRIgine 100 MG TAB PO SCH (11:57)
[2020-12-02] MEDS: METOPROLOL TARTRATE 25 MG TAB PO SCH (11:57)
[2020-12-02] MEDS: levETIRAcetam 500 MG TAB PO SCH (11:57)
[2020-12-02] MEDS: amLODIPine BESYLATE 5 MG TAB PO SCH (11:58)
[2020-12-02] MEDS: MULTIPLE VITAMIN TAB PO SCH (11:58)
[2020-12-02] MEDS: FAMOTIDINE 20 MG TAB PO SCH (11:58)
[2020-12-02] MEDS: oxyCODONE ER 10 MG TAB PO SCH (11:58)
[2020-12-02] MEDS: INSULIN LANTUS (GLARGINE) 1 /0.01ml (100units/ml) SC SCH (11:59)
[2020-12-02 13:00] VITALS: BP 110/75
[2020-12-02 15:29] VITALS: BP 121/86
[2020-12-02 17:00] VITALS: BP 111/77
== END 2020-12-02 21:00 | DRG 605 ==
LOC: EDBD 02:25 → ER 02:29 → TELE 02:30 → TELE-WESTW 11:06
PROVIDERS: ADMIT Nurse Practitioner Family; ATTEND Internal Medicine
DX: S70.11XA Contusion of right thigh, initial encounter (principal); E87.2 Acidosis; E87.1 Hypo-osmolality and hyponatremia; M62.82 Rhabdomyolysis; N39.0 Urinary tract infection, site not specified; N17.9 Acute kidney failure, unspecified; Z20.822 Contact with and (suspected) exposure to COVID-19; S70.01XA Contusion of right hip, initial encounter; G40.409 Other generalized epilepsy and epileptic syndromes, not intractable, without status epilepticus; S76.811A Strain of other specified muscles, fascia and tendons at thigh level, right thigh, initial encounter; M54.5 Low back pain; K44.9 Diaphragmatic hernia without obstruction or gangrene; E11.65 Type 2 diabetes mellitus with hyperglycemia; N20.0 Calculus of kidney; F11.90 Opioid use, unspecified, uncomplicated; D72.829 Elevated white blood cell count, unspecified; G89.29 Other chronic pain; R26.9 Unspecified abnormalities of gait and mobility; R29.2 Abnormal reflex; E78.5 Hyperlipidemia, unspecified; M54.30 Sciatica, unspecified side; I10 Essential (primary) hypertension; E87.6 Hypokalemia; F17.200 Nicotine dependence, unspecified, uncomplicated; F41.9 Anxiety disorder, unspecified; R31.0 Gross hematuria; W18.39XA Other fall on same level, initial encounter; Z53.20 Procedure and treatment not carried out because of patient's decision for unspecified reasons; Z74.01 Bed confinement status; Z79.82 Long term (current) use of aspirin; Z79.899 Other long term (current) drug therapy; Z82.0 Family history of epilepsy and other diseases of the nervous system; Z83.3 Family history of diabetes mellitus; Z82.49 Family history of ischemic heart disease and other diseases of the circulatory system; Z90.710 Acquired absence of both cervix and uterus; Y93.89 Activity, other specified; Y92.89 Other specified places as the place of occurrence of the external cause; Y99.8 Other external cause status
CPT/HCPCS: 36415; 70450; 70551; 71045; 72125; 72131; 72158; 73723; 74177; 80048; 80053; 80307; 81001; 82542; 82550; 82565; 82962; 83036; 83605; 83735; 84484; 85025; 85610; 85730; 87040; 87426; 93005; 93306; 95819; 96365; 96368; 96375; 97110; 97530; 99291; G0378; J0696; J1815; J2001; J2405; J2543; J3490; J7060

== ENCOUNTER 2021-03-11 00:08 | Inpatient (IN) | payer OTHER, MEDICAID ==
[~2021-03-11] VITALS: Ht 162.6 cm; Wt 58.1 kg
[~2021-03-11 00:08] MED LIST changes: +CLON0.2T PO; -LAMO100T44 PO; +LORA1TAB23 PO; +OXYB5TAB24 PO; +PIOG30TA28 PO; +PREG50CA PO
[2021-03-11] MEDS ORDERED: diazePAM 5 MG TAB PO ONE ×2 (00:15→01:30)
[2021-03-11] MEDS ORDERED: SODIUM CHLORIDE 0.9% 1,000 ML IV ONE (00:15)
[2021-03-11] MEDS ORDERED: MAGNESIUM SULFATE 1GM/100ML 100 ML IV ONE (00:15)
[2021-03-11 01:24] LABS: Basophils # (auto) 0.1 10 ^3/uL (0-0.2); Basophils % (auto) 0.6 % (0.0-2.0); Eosinophils # (auto) 0.2 10 ^3/uL (0-0.8); Eosinophils % (auto) 0.9 % (0.0-7.0); Hematocrit 44.7 % (36.0-46.0); Hemoglobin 15.2 g/dL (12.2-16.2); Lymphocytes # (auto) 3.6 10 ^3/uL (0.4-5.4); Lymphocytes % (auto) 17.7 % (10.0-50.0); Mean Corpuscular Hemoglobin 29.2 pg (28.0-32.0); Mean Corpuscular Hgb Conc. 33.9 g/dL (32.0-36.0); Mean Corpuscular Volume 86.1 fL (80.0-100.0); Monocytes % (auto) 5.1 % (0.0-12.0); Neutrophils # (auto) 15.4 10 ^3/uL (1.6-8.6); Neutrophils % (auto) 75.7 % (37.0-80.0); Nucleated Red Blood Cells % 0.1 %; Platelet Count (auto) 438 10^3/uL (140-450); Red Blood Cells 5.19 10^6/uL (4.0-5.20); Red Cell Distribution Width 12.3 % (11.8-14.3); White Blood Cell 20.3 10^3/uL (4.4-10.8)
[2021-03-11] MEDS ORDERED: HYDROmorphone HCL 2 MG/ML VL IV ONE (01:30)
[2021-03-11 01:39] LABS: BUN/Creatinine Ratio 12.2; Calcium 9.8 mg/dL (8.5-10.1); Magnesium 2.3 mg/dL (1.6-2.6); Potassium 4.8 mmol/L (3.5-5.1)
[2021-03-11 01:42] LABS: Bilirubin, Total 0.4 mg/dL (0.2-1.0); Total Protein 8.3 g/dL (6.4-8.2)
[2021-03-11] MEDS ORDERED: ACETAMINOPHEN 325 MG TAB PO ONE (02:45)
[2021-03-11] MEDS ORDERED: SODIUM CHLORIDE 0.9% 2,000 ML IV ONE (02:45)
[2021-03-11] MEDS ORDERED: DEXTROSE (50%) 50ML SYRG IV PRN ×2 (04:15→05:15)
[2021-03-11] MEDS ORDERED: InsuLIN R (HUMAN) 100 UNITS in SODIUM CHL 0.9% 99 ML IV SCH (04:15)
[2021-03-11] MEDS ORDERED: ACCU-CHEK COMFORT CURVE STRIP VI SCH (04:30)
[2021-03-11 04:52] LABS: Urine Bacteria NONE SEEN /hpf (None Seen); Urine Blood 3+ /uL (Negative); Urine Hyaline Cast MOD /lpf (0 - 2); Urine Mucus FEW (None Seen); Urine Specific Gravity 1.027 (1.001-1.035); Urine WBC 7 /hpf (0 - 5)
[2021-03-11 04:55] LABS: Lactic Acid w/Reflex 2.3 mmol/L (0.4-2.0)
[2021-03-11] MEDS ORDERED: NITROGLYCERIN 0.4 MG SL TAB SL PRN (05:15)
[2021-03-11] MEDS ORDERED: DOCUSATE SOD 100 MG CAP PO PRN (05:15)
[2021-03-11] MEDS ORDERED: ACETAMINOPHEN 325 MG TAB PO PRN (05:15)
[2021-03-11] MEDS ORDERED: HYDROcodone-ACET 5/325MG TAB PO PRN (05:15)
[2021-03-11] MEDS ORDERED: hydrALAZINE HCL 20 MG/ML VL IV PRN (05:15)
[2021-03-11] MEDS ORDERED: MORPHINE SULF INJ 2 MG/ML SYRINGE 1ML IV PRN (05:15)
[2021-03-11] MEDS ORDERED: ONDANSETRON HCL 4 MG/2 ML VIAL IV PRN (05:15)
[2021-03-11] MEDS: SODIUM CHLORIDE 0.9% 1,000 ML IV SCH ×3 (06:16→20:30)
[2021-03-11] MEDS: ACCU-CHEK COMFORT CURVE STRIP VI SCH ×5 (08:48→23:55)
[2021-03-11] MEDS: InsuLIN REG 1unit/0.01ml Soln (100units/ml) SC SCH ×5 (08:59→23:56)
[2021-03-11 09:00] VITALS: BP 116/76
[2021-03-11] MEDS: INSULIN LANTUS (GLARGINE) 1 /0.01ml (100units/ml) SC SCH ×2 (09:00→21:36)
[2021-03-11] MEDS: HEPARIN SODIUM (PORCINE) 5000 UNITS/ML 1ML VIAL SC SCH ×2 (09:00→21:37)
[2021-03-11] MEDS: cefTRIAXone 1GM/50ML D5W 50 ML IV SCH (09:14)
[2021-03-11] MEDS: MULTIPLE VITAMIN TAB PO SCH (09:17)
[2021-03-11] MEDS: amLODIPine BESYLATE 5 MG TAB PO SCH (09:24)
[2021-03-11] MEDS ORDERED: ATOR10TA52 PO (09:45)
[2021-03-11] MEDS ORDERED: AMIT25TA10 PO (09:45)
[2021-03-11] MEDS ORDERED: PREG-108 PO (09:45)
[2021-03-11] MEDS ORDERED: FAMOTIDINE (10MG/ML) 2ML VL IV SCH (10:00)
[2021-03-11] MEDS ORDERED: ZINC SULFATE 220mg CAP or TAB PO SCH (10:00)
[2021-03-11] MEDS ORDERED: ASCORBIC ACID 500 MG TAB PO SCH (10:00)
[2021-03-11 10:45] LABS: Basophils # (auto) 0.1 10 ^3/uL (0-0.2); Basophils % (auto) 0.3 % (0.0-2.0); Eosinophils # (auto) 0 10 ^3/uL (0-0.8); Hematocrit 37.2 % (36.0-46.0); Hemoglobin 13.1 g/dL (12.2-16.2); Lymphocytes # (auto) 1.1 10 ^3/uL (0.4-5.4); Lymphocytes % (auto) 6.9 % (10.0-50.0); Mean Corpuscular Hemoglobin 29.5 pg (28.0-32.0); Mean Corpuscular Hgb Conc. 35.2 g/dL (32.0-36.0); Mean Corpuscular Volume 83.8 fL (80.0-100.0); Monocytes # (auto) 0.7 10 ^3/uL (0-1.3); Monocytes % (auto) 4.8 % (0.0-12.0); Neutrophils # (auto) 13.5 10 ^3/uL (1.6-8.6); Platelet Count (auto) 226 10^3/uL (140-450); Red Blood Cells 4.44 10^6/uL (4.0-5.20); Red Cell Distribution Width 12.6 % (11.8-14.3); White Blood Cell 15.3 10^3/uL (4.4-10.8)
[2021-03-11] MEDS: PREGABALIN 25 MG CAP PO SCH ×2 (11:00→21:08)
[2021-03-11 11:01] LABS: Albumin 3.5 g/dL (3.4-5.0); Calcium 7.7 mg/dL (8.5-10.1)
[2021-03-11] MEDS: lamoTRIgine 100 MG TAB PO SCH ×2 (11:01→21:08)
[2021-03-11 11:04] LABS: BUN/Creatinine Ratio 25.6; Bilirubin, Total 0.2 mg/dL (0.2-1.0)
[2021-03-11 11:54] LABS: Creatinine, Urine 58 mg/dL (30.0-125.0); Sodium Urine 110 mmol/L (40-220)
[2021-03-11] MEDS ORDERED: POTASSIUM CHL 20 Meq TABLET PO ONE (12:15)
[2021-03-11 13:00] VITALS: BP 122/87
[2021-03-11] MEDS ORDERED: SODIUM CHLORIDE 0.9% 250 ML IV ONE (15:15)
[2021-03-11] MEDS ORDERED: LEVO500T31 PO (15:23)
[2021-03-11] MEDS: POTASSIUM CHL 20MEQ/100ML 100 ML IV SCH ×2 (15:27→17:02)
[2021-03-11 15:35] LABS: Cholesterol 121 mg/dL (< 200)
[2021-03-11 15:38] LABS: HDL Cholesterol 43 mg/dL (40-59); LDL Cholesterol 67 mg/dL (< 100); Triglycerides 92 mg/dL (< 150)
[2021-03-11 17:00] VITALS: BP 105/66
[2021-03-11 18:54] VITALS: BP 105/66
[2021-03-11 22:00] VITALS: BP 109/72
[2021-03-11] MEDS ORDERED: AMITRIPTYLINE HCL 25 MG TAB PO SCH (22:00)
[2021-03-11] MEDS ORDERED: ATORVASTATIN 20 MG TAB PO SCH (22:00)
[2021-03-12] MEDS: ACCU-CHEK COMFORT CURVE STRIP VI SCH ×2 (03:57→08:36)
[2021-03-12] MEDS: InsuLIN REG 1unit/0.01ml Soln (100units/ml) SC SCH ×2 (04:00→08:00)
[2021-03-12] MEDS: SODIUM CHLORIDE 0.9% 1,000 ML IV SCH (04:10)
[2021-03-12 05:00] VITALS: BP 125/82
[2021-03-12] MEDS: INSULIN LANTUS (GLARGINE) 1 /0.01ml (100units/ml) SC SCH (06:19)
[2021-03-12 06:25] LABS: Basophils # (auto) 0 10 ^3/uL (0-0.2); Basophils % (auto) 0.4 % (0.0-2.0); Eosinophils # (auto) 0.2 10 ^3/uL (0-0.8); Eosinophils % (auto) 2.2 % (0.0-7.0); Hematocrit 35.8 % (36.0-46.0); Hemoglobin 12.8 g/dL (12.2-16.2); Lymphocytes % (auto) 21.5 % (10.0-50.0); Mean Corpuscular Hemoglobin 30.2 pg (28.0-32.0); Mean Corpuscular Hgb Conc. 35.7 g/dL (32.0-36.0); Mean Corpuscular Volume 84.5 fL (80.0-100.0); Monocytes # (auto) 0.5 10 ^3/uL (0-1.3); Monocytes % (auto) 5.4 % (0.0-12.0); Neutrophils # (auto) 6.5 10 ^3/uL (1.6-8.6); Neutrophils % (auto) 70.5 % (37.0-80.0); Nucleated Red Blood Cells % 0.1 %; Platelet Count (auto) 226 10^3/uL (140-450); Red Blood Cells 4.24 10^6/uL (4.0-5.20); Red Cell Distribution Width 12.5 % (11.8-14.3); White Blood Cell 9.2 10^3/uL (4.4-10.8)
[2021-03-12 06:56] LABS: Albumin 3.2 g/dL (3.4-5.0); BUN/Creatinine Ratio 22.7; Bilirubin, Total 0.3 mg/dL (0.2-1.0); Calcium 8.3 mg/dL (8.5-10.1); Phosphorus 3.3 mg/dL (2.5-4.90); Total Protein 6.4 g/dL (6.4-8.2); Uric Acid 4.1 mg/dL (2.6-6.0)
[2021-03-12] MEDS: lamoTRIgine 100 MG TAB PO SCH (08:42)
[2021-03-12] MEDS: cefTRIAXone 1GM/50ML D5W 50 ML IV SCH (08:42)
[2021-03-12] MEDS: MULTIPLE VITAMIN TAB PO SCH (08:43)
[2021-03-12] MEDS: PREGABALIN 25 MG CAP PO SCH (08:45)
[2021-03-12] MEDS: HEPARIN SODIUM (PORCINE) 5000 UNITS/ML 1ML VIAL SC SCH (08:50)
[2021-03-12 09:00] VITALS: BP 131/89
[2021-03-12] MEDS: amLODIPine BESYLATE 5 MG TAB PO SCH (09:00)
[2021-03-12] MEDS ORDERED: FAMO20TA10 PO (09:02)
[2021-03-12] MEDS ORDERED: ASPI-231 PO (09:03)
[2021-03-12] MEDS ORDERED: FAMOTIDINE 20 MG TAB PO SCH (10:00)
[2021-03-13 13:53] LABS: Hepatitis A Ab IgM Negative; Hepatitis B Core IgM Negative; Hepatitis B Surface Antigen Negative (Negative)
[2021-03-13 13:54] LABS: Hepatitis C Antibody Negative (Negative)
== END 2021-03-12 11:40 | disposition home health service (06) | DRG 871 ==
LOC: ER 00:08 → EDBD 00:08 → TELE 05:15 → TELE-WESTW 06:45
PROVIDERS: ADMIT Nurse Practitioner Family; ATTEND Nurse Practitioner Family
DX: A41.9 Sepsis, unspecified organism (principal); E11.10 Type 2 diabetes mellitus with ketoacidosis without coma; N39.0 Urinary tract infection, site not specified; E87.2 Acidosis; M62.82 Rhabdomyolysis; N17.9 Acute kidney failure, unspecified; Z20.822 Contact with and (suspected) exposure to COVID-19; E78.5 Hyperlipidemia, unspecified; I10 Essential (primary) hypertension; E87.6 Hypokalemia; R94.5 Abnormal results of liver function studies; F32.9 Major depressive disorder, single episode, unspecified; G40.909 Epilepsy, unspecified, not intractable, without status epilepticus; R74.01 Elevation of levels of liver transaminase levels; K21.9 Gastro-esophageal reflux disease without esophagitis; M47.816 Spondylosis without myelopathy or radiculopathy, lumbar region; Z82.0 Family history of epilepsy and other diseases of the nervous system; Z82.49 Family history of ischemic heart disease and other diseases of the circulatory system; Z83.3 Family history of diabetes mellitus; Z87.59 Personal history of other complications of pregnancy, childbirth and the puerperium; Z90.710 Acquired absence of both cervix and uterus; Z79.899 Other long term (current) drug therapy; Z79.891 Long term (current) use of opiate analgesic; Z79.01 Long term (current) use of anticoagulants
CPT/HCPCS: 36415; 51702; 71045; 74176; 76775; 80053; 80061; 80074; 81001; 81025; 82550; 82570; 82962; 83036; 83605; 83735; 84100; 84133; 84156; 84166; 84300; 84550; 85025; 87040; 87086; 87426; 87804; 93925; 93970; 96361; 96365; 96375; G0378; J0696; J1815; J3480; J3490; J7060